=== PATIENT | female | born 2000 | race Caucasian/White ===

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

== ENCOUNTER 2021-04-17 22:15 | Emergency (ER) | payer OTHER ==
[~2021-04-17 22:15] MED LIST: AMOXICILLIN500 MG PO; CIPRO250 MG PO; VISTARIL25 MG PO
[2021-04-18] MEDS ORDERED: IBUPROFEN600 MG PO (00:16)
[2021-04-18] MEDS ORDERED: PREDNISONE 10 M10 MG PO (00:16)
== END 2021-04-18 01:32 | disposition home or self-care (01) ==
LOC: ER1 22:15
DX: J02.9 Acute pharyngitis, unspecified (principal); F17.210 Nicotine dependence, cigarettes, uncomplicated; Z20.822 Contact with and (suspected) exposure to COVID-19
CPT/HCPCS: 87081; 87880; 96372; 99283; J1885; U0002

== ENCOUNTER 2021-09-10 06:01 | Emergency (ER) | payer OTHER ==
[~2021-09-10 06:01] MED LIST changes: +IBUPROFEN600 MG PO; +PREDNISONE 10 M10 MG PO
[2021-09-10 07:16] LABS: HEMOGLOBIN 13.3 gm/dl (12.3-15.3); RED BLOOD COUNT 4.11 M/UL (4.00-5.10); WHITE BLOOD COUNT 6.5 K/UL (4.5-11.0)
[2021-09-10 16:25] LABS: BUN/CREATININE RATIO 14 (0-10)
== END 2021-09-10 10:39 | disposition home or self-care (01) ==
LOC: ER1 06:01
PROVIDERS: Physician Assistant
DX: R07.89 Other chest pain (principal); F17.200 Nicotine dependence, unspecified, uncomplicated
CPT/HCPCS: 71045; 80053; 82550; 82553; 84484; 85025; 93005; 96374; 99283; J1885

== ENCOUNTER → 2021-09-16 | Outpatient (CLI) | payer OTHER | LOC: EXRD 15:17 | DX: M25.511 Pain in right shoulder (principal) | CPT/HCPCS: 73030 ==